=== PATIENT | male | born 1940 | race Caucasian/White ===

== ENCOUNTER 2022-10-13 13:50 | Emergency (ER) | payer MEDICARE, SELFPAY ==
[2022-10-13 13:52] VITALS: BP 142/74; PULSE 62; RESP 18; TEMP 36.8; O2SAT 98; BMI 26.5
--- NOTE | 2022-10-13 13:58 | XR_ITS ---
[place] [id number] Patient Name: NATALIA MAY MRN: [id number] date: 1940 Sex: M Assigned Patient Location: ER Current Patient Location: ER Accession/Order Number: [id number] Exam Date: 10/13/2022 14:30 Report Date: 10/13/2022 14:57 At the request of: TAN MORENO Procedure: XR pelvis 1-2V STUDY: XR pelvis 1-2V, [id number] HISTORY: Fall COMPARISON: None FINDINGS: No acute fracture, dislocation, or suspicious osseous lesion. 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 XR/XR pelvis 1-2V IMPRESSION: No acute osseous abnormality. Electronically authenticated by: LUIS FERNANDO WALLS Date: 10/13/2022 14:57
--- NOTE | 2022-10-13 13:58 | XR_ITS ---
The [address] [address] Patient Name: NATALIA MAY MRN: [id number] date: 1940 Sex: M Assigned Patient Location: ER Current Patient Location: ER Accession/Order Number: [id number] Exam Date: 10/13/2022 14:30 Report Date: 10/13/2022 14:55 At the request of: TAN MORENO Procedure: XR chest 1V EXAM: XR chest 1V at 1435 hours HISTORY: Syncope COMPARISON: 07/26/2018 TECHNIQUE: AP upright portable chest x-ray FINDINGS: The heart is not enlarged and the vasculature is not distended. No acute infiltrate, effusion or pneumothorax is identified. A calcified granuloma seen at the left lung base laterally. Degenerative changes are seen in the spine. XR/XR chest 1V IMPRESSION: No acute infiltrate or evidence of cardiac decompensation. The overall appearance of the chest is essentially unchanged. Electronically authenticated by: FAUSTINO CARROLL Date: 10/13/2022 14:55
--- NOTE | 2022-10-13 13:58 | ECG_ITS ---
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
--- NOTE | 2022-10-13 13:58 | XR_ITS ---
The [address] [address] Patient Name: NATALIA MAY MRN: [id number] date: 1940 Sex: M Assigned Patient Location: ER Current Patient Location: ER Accession/Order Number: [id number] Exam Date: 10/13/2022 14:30 Report Date: 10/13/2022 14:54 At the request of: TAN MORENO Procedure: XR knee LT 4V XR knee LT 4V, 10/13/2022 2:30 PM EDT, OH001 INDICATION: Fall COMPARISON: Radiographs from 07/26/2018 TECHNIQUE: 4 views are submitted. FINDINGS: The osseous structures appear well mineralized. The distal femur, proximal tibia, fibula and patella are all intact. Narrowing of the medial and patellofemoral joint compartments with moderate marginal osteophyte formation is again noted as well as moderate chondrocalcinosis. There is evidence of a moderate joint effusion. XR/XR knee LT 4V IMPRESSION: No acute osseous injury with normal alignment. Advanced degenerative changes are again noted in the medial and patellofemoral compartments. Moderate joint effusion. Electronically authenticated by: MANNY ULRICH Date: 10/13/2022 14:54
--- NOTE | 2022-10-13 14:00 | ED.FALL1 ---
HPI - Fall General Chief Complaint: Fall Stated Complaint: BACK PAIN , FALL Time Seen by Provider: 10/13/22 13:57 Source: patient Mode of arrival: ambulance History of Present Illness HPI Narrative: patient is an 10-year-old male who presents the emergency department by ambulance for the evaluation of a fall with injury to the low back. Patient is an extremely poor historian, when questioned on why he fell, he states that he was attempting to get up from a seated position and fell, he believes he may have passed out area to he states he is mildly dizzy at this time. He denies head injury, vomiting, visual changes. He denies any recent illness, chest pain, shortness of breath. He reports pain to his low back as well as his left knee. He denies taking blood thinners, [facility] P[facility] at [facility]. No medications were taken prior to arrival. Related Data Allergies Allergy/AdvReac Type Severity Reaction Status Date / Time Unable to Assess Allergy Verified 10/13/22 13:52 Review of Systems ROS Constitutional Denies: fever or chills Cardiovascular Denies: chest pain Respiratory Denies: shortness of breath or cough Gastrointestinal Denies: nausea or vomiting Musculoskeletal Reports: back pain and extremity pain; Denies: neck pain Integumentary/Breast Denies: rash Neurological Denies: headache Hematologic/Lymphatic Denies: easy bruising Exam Narrative Exam Narrative: Gen.: Awake, alert, in no distress Head: Normocephalic, atraumatic ENT: Moist mucous membranes, C-spine nontender Respiratory: No respiratory distress, lungs clear bilaterally Cardio: Regular rate and rhythm Gastrointestinal: Abdomen is soft, nondistended and nontender to palpation, pelvis is stable and hips are nontender Extremities: well-healed surgical scar and mild edema of the left knee, limited flexion and extension of the left knee due to pain with no obvious deformity or bony point tenderness. No upper extremity injuries noted. Back: diffuse tenderness of the lumbar spine with no abrasions, ecchymosis or bony point tenderness; no obvious deformity or step-off. No bony tenderness of the C-spine or T-spine Psych: Normal mood and affect Neuro: No focal neuro deficit Skin: Warm, dry, intact Constitutional Vital Signs, click to edit/add: Last Vital Signs Temp 98.3 F 10/13/22 13:52 Pulse 62 10/13/22 13:52 Resp 18 10/13/22 13:52 BP 142/74 H 10/13/22 13:52 Pulse Ox 98 10/13/22 13:52 O2 Del Method Room Air 10/13/22 13:52 Course Vital Signs Vital signs: Vital Signs Temperature 98.3 F 10/13/22 13:52 Pulse Rate 62 10/13/22 13:52 Respiratory Rate 18 10/13/22 13:52 Blood Pressure 142/74 H 10/13/22 13:52 Pulse Oximetry 98 10/13/22 13:52 Oxygen Delivery Method Room Air 10/13/22 13:52 Temperature 98.3 F 10/13/22 13:52 Pulse Rate 62 10/13/22 13:52 Respiratory Rate 18 10/13/22 13:52 Blood Pressure 142/74 H 10/13/22 13:52 Pulse Oximetry 98 10/13/22 13:52 Oxygen Delivery Method Room Air 10/13/22 13:52 MDM - Fall MDM Narrative Medical decision making narrative: CT of the head, C-spine, L-spine, x-rays of the chest, pelvis and left knee with no evidence of acute abnormalities. Lab studies show mild renal insufficiency and the patient was treated with IV fluids. Rahis arrived to the emergency Department and states that the neighbor saw him fall forward after he was trying to get himself up to a standing position walk into the house, he had no syncope. Patient's states that the patient has dementia and is not a reliable historian. He is awake, alert and in no distress in the Emergency Room with no focal medical complaints of chest pain, shortness of breath. He was able to ambulate to the bathroom with no difficulty. Patient's is comfortable taking him home. Follow-up with PCP and return to the Emergency Room if symptoms change or worsen. Medical Records Attestation: I reviewed the patient's medical records. Lab Data Attestation: I reviewed the patient's lab results. Labs: Lab Results 10/13/22 Range/Units 15:10 WBC 8.1 (4.0-11.0) 10^3/uL RBC 3.52 L (4.70-6.10) 10^6/uL Hgb 11.0 L (14.0-18.0) g/dL Hct 33.9 L (42.0-54.0) % MCV 96.3 H (80.0-94.0) fL MCH 31.3 (25.9-34.0) pg MCHC 32.4 (29.9-35.2) g/dL RDW 14.9 (11.0-15.0) % Plt Count 216 (150-450) 10^3/uL MPV 11.1 (9.5-13.5) fL Neut % (Auto) 71.9 (43.0-75.0) % Lymph % (Auto) 15.3 L (20.5-60.0) % [place] % (Auto) 9.0 (1.7-12.0) % Eos % (Auto) 2.6 (0.9-7.0) % Baso % (Auto) 0.6 (0.2-2.0) % Neut # (Auto) 5.8 (1.4-6.5) 10^3/uL Lymph # (Auto) 1.2 (1.2-3.8) 10^3/uL [place] # (Auto) 0.7 (0.3-0.8) 10^3/uL Eos # (Auto) 0.2 (0.0-0.7) 10^3/uL Baso # (Auto) 0.1 (0.0-0.1) 10^3/uL Abs Immat Gran (auto) 0.05 H (0.00-0.03) 10^3/uL Imm/Tot Granulo (auto) 0.6 H (0.0-0.5) % PT 10.3 (9.0-11.6) sec INR 0.97 APTT 26.4 (22.3-36.2) sec Sodium 144 (136-145) mmol/L Potassium 4.4 (3.5-5.1) mmol/L Chloride 110 H (98-107) mmol/L Carbon Dioxide 25.2 (21.0-32.0) mmol/L Anion Gap 13.2 BUN 33.0 H (7.0-18.0) mg/dL Creatinine 1.41 H (0.70-1.30) mg/dL Est GFR ( Amer) 59 L (>=60) Est GFR (Non-Af Amer) 48 L (>=60) BUN/Creatinine Ratio 23.4 Glucose 86 (74-106) mg/dL Calcium 9.1 (8.5-10.1) mg/dL Total Bilirubin 0.4 (0.2-1.0) mg/dL AST 18 (15-37) U/L ALT 13 L (16-63) U/L Alkaline Phosphatase 76 (46-116) U/L Troponin I High Sens 8.1 (4.0-76.1) pg/mL Total Protein 6.9 (6.4-8.2) g/dL Albumin 3.4 (3.4-5.0) g/dL Globulin 3.5 g/dL Albumin/Globulin Ratio 1.0 Urine Color Yellow (YELLOW) Urine Clarity Clear (CLEAR) Urine pH 6.0 (5.0-9.0) Ur Specific [place] 1.015 (1.005-1.025) Urine Protein Negative (NEG/TRACE) mg/dL Urine Glucose (UA) Negative (NEGATIVE) mg/dL Urine Ketones Negative (NEGATIVE) mg/dL Urine Occult Blood Negative (NEGATIVE) Urine Nitrite Negative (NEGATIVE) Urine Bilirubin Negative (NEGATIVE) Urine Urobilinogen 0.2 (0.2-1.0) EU/dL Ur Leukocyte Esterase Negative (NEGATIVE) ECG Data Attestation: I personally reviewed and interpreted this ECG as follows: (normal sinus rhythm at a rate of sixty-one, no acute ST elevation or ectopy. EKG reviewed by attendding physician) Discharge Plan Discharge Chief Complaint: Fall Clinical Impression: Low back pain, Fall Patient Disposition: Home, Self-Care Time of Disposition Decision: 16:11 Condition: Good Instructions: Acute Low Back Pain (ED), Fall Prevention (ED) Stand Alone Forms: Portal Instructions Referrals: Physician,Non-Staff, MD [Primary Care Provider] - 1 week
[2022-10-13 14:01] VITALS: PULSE 60; RESP 17
[2022-10-13 14:10] VITALS: PULSE 59; RESP 16
--- NOTE | 2022-10-13 14:32 | CT_ITS ---
The [address] [address] Patient Name: NATALIA MAY MRN: [id number] date: 1940 Sex: M Assigned Patient Location: ER Current Patient Location: ER Accession/Order Number: [id number] Exam Date: 10/13/2022 14:22 Report Date: 10/13/2022 14:47 At the request of: TAN MORENO Procedure: CT cervical spine wo con EXAM: CT cervical spine wo con HISTORY: Fall COMPARISON: None. TECHNIQUE: CT cervical spine without contrast. Multiplanar reformats obtained. The current study utilizes one or more of the following dose-reduction techniques: automated exposure control, iterative reconstruction, and/or manual adjustment of tube current and voltage for size. FINDINGS: No evidence of acute fracture or traumatic malalignment. Age expected degenerative changes. No prevertebral edema. Mild/moderate multilevel spinal canal stenosis. Moderate to severe multilevel and bilateral neural foraminal stenosis. CT/CT cervical spine wo con IMPRESSION: No acute findings of the cervical spine. Electronically authenticated by: ZOHAIB LLOYD Date: 10/13/2022 14:47
--- NOTE | 2022-10-13 14:32 | CT_ITS ---
The [address] [address] Patient Name: NATALIA MAY MRN: [id number] date: 1940 Sex: M Assigned Patient Location: ER Current Patient Location: ER Accession/Order Number: [id number] Exam Date: 10/13/2022 14:22 Report Date: 10/13/2022 14:47 At the request of: TAN MORENO Procedure: CT head/brain wo con EXAMINATION: CT head/brain wo con, 10/13/2022 2:22 PM EDT HISTORY: Fall, syncope COMPARISON: None. TECHNIQUE: CT scan of the head was performed without IV contrast. CT dose reduction technique was used, including Automated Exposure Control. HISTORY: Fall, syncope FINDINGS: BRAIN: Moderate generalized atrophy. Mild to moderate white matter hypoattenuation with scattered areas of CSF density likely representing remote lacunar infarcts. No acute hemorrhage or mass CSF SPACES: No hydrocephalus, subarachnoid hemorrhage, or mass. Appropriate for age. SKULL: No fracture, mass, or other significant visible lesion. SINUSES: No significant mucosal thickening or fluid on the limited views. ORBITS: No appreciable abnormality on the limited views. OTHER: Negative CT/CT head/brain wo con IMPRESSION: Atrophy and white matter disease No acute intracranial abnormality Electronically authenticated by: MAGDALENA MARTINEZ Date: 10/13/2022 14:47
--- NOTE | 2022-10-13 14:32 | CT_ITS ---
The [address] [address] Patient Name: NATALIA MAY MRN: [id number] date: 1940 Sex: M Assigned Patient Location: ER Current Patient Location: ER Accession/Order Number: [id number] Exam Date: 10/13/2022 14:22 Report Date: 10/13/2022 14:52 At the request of: TAN MORENO Procedure: CT lumbar spine wo con EXAM: CT lumbar spine wo con; [id number] REASON FOR EXAM: Fall COMPARISON: CT abdomen/pelvis 05/21/2021. TECHNIQUE: Helical CT images of the lumbar spine were obtained without contrast. Multiplanar reformats generated at the scanner. Dose reduction technique used: Automated exposure control and/or adjustment of the mA and/or kV according to patient size and/or use of iterative reconstruction technique. FINDINGS: Note: Compared with contrast-enhanced CT exams, noncontrast images are less sensitive for detection of some types of vascular, solid organ, and soft tissue pathology. Alignment: No traumatic malalignment. Non degenerative osseous findings: -No acute fracture. -No suspicious osseous lesion. Degenerative osseous changes: -Severe osteophytosis throughout the lumbar spine. There is severe intervertebral disc height loss at L4-L5 and lesser intervertebral disc height loss throughout the remainder of the lumbar spine. -Multilevel and bilateral severe facet arthropathy. Visualized paraspinous soft tissues: Fusiform abdominal aortic aneurysm at the iliac bifurcation measuring 31 mm in greatest AP dimension, similar compared with 05/21/2021. CT/CT lumbar spine wo con IMPRESSION: No acute traumatic abnormality of the lumbar spine. Electronically authenticated by: LUIS FERNANDO WALLS Date: 10/13/2022 14:52
[2022-10-13] MEDS: 0.9 % SODIUM CHLORIDE 1,000 ML 999 ML IV (15:14)
[2022-10-13 15:26] LABS: Basophils Absolute Auto 0.1 10^3/uL (0.0-0.1); Basophils Percent Auto 0.6 % (0.2-2.0); Eosinophils Absolute Auto 0.2 10^3/uL (0.0-0.7); Eosinophils Percent Auto 2.6 % (0.9-7.0); Hematocrit 33.9 % (42.0-54.0); Immature Granulocytes Abs Auto 0.05 10^3/uL (0.00-0.03); Immature Granulocytes Pct Auto 0.6 % (0.0-0.5); Lymphocytes Absolute Auto 1.2 10^3/uL (1.2-3.8); Lymphocytes Percent Auto 15.3 % (20.5-60.0); Mean Corpuscular HGB Conc 32.4 g/dL (29.9-35.2); Mean Corpuscular Hemoglobin 31.3 pg (25.9-34.0); Mean Corpuscular Volume 96.3 fL (80.0-94.0); Mean Platelet Volume 11.1 fL (9.5-13.5); Monocytes Absolute Auto 0.7 10^3/uL (0.3-0.8); Neutrophils Absolute Auto 5.8 10^3/uL (1.4-6.5); Neutrophils Percent Auto 71.9 % (43.0-75.0); Platelet Count 216 10^3/uL (150-450); Red Blood Count 3.52 10^6/uL (4.70-6.10); Red Cell Distribution Width 14.9 % (11.0-15.0); White Blood Count 8.1 10^3/uL (4.0-11.0)
[2022-10-13 15:35] LABS: Bilirubin Urine NEGATIVE (NEGATIVE); Blood Urine NEGATIVE (NEGATIVE); Clarity Urine CLEAR (CLEAR); Color Urine YELLOW (YELLOW); Glucose Urine UA NEGATIVE (NEGATIVE); Ketones Urine NEGATIVE (NEGATIVE); Leukocyte Esterase Urine NEGATIVE (NEGATIVE); Nitrite Urine NEGATIVE (NEGATIVE); Protein Urine NEGATIVE (NEG/TRACE); Specific Gravity Urine 1.015 (1.005-1.025); Urobilinogen Urine 0.2 EU/dL (0.2-1.0)
[2022-10-13 15:37] LABS: Urine Microscopic Indicated NO
[2022-10-13 15:40] LABS: INR 0.97; Partial Thromboplastin Time 26.4 sec (22.3-36.2); Prothrombin Time 10.3 sec (9.0-11.6)
[2022-10-13 15:42] LABS: Alanine Aminotransferase 13 U/L (16-63); Albumin Level 3.4 g/dL (3.4-5.0); Alkaline Phosphatase 76 U/L (46-116); Anion Gap 13.2; Aspartate Amino Transferase 18 U/L (15-37); BUN Creatinine Ratio 23.4; Bilirubin Total 0.4 mg/dL (0.2-1.0); Calcium 9.1 mg/dL (8.5-10.1); Carbon Dioxide 25.2 mmol/L (21.0-32.0); Chloride 110 mmol/L (98-107); Estimated GFR (African America 59 (>=60); Estimated GFR (Non-African Ame 48 (>=60); Globulin 3.5 g/dL; Glucose 86 mg/dL (74-106); Potassium 4.4 mmol/L (3.5-5.1); Sodium 144 mmol/L (136-145); Total Protein 6.9 g/dL (6.4-8.2); Troponin I High Sensitivity 8.1 pg/mL (4.0-76.1)
[2022-10-13 16:16] VITALS: O2SAT 99
[2022-10-13 16:17] VITALS: BP 150/85
== END 2022-10-13 16:27 | disposition home or self-care (01) ==
PROVIDERS: Physician Assistant; Emergency Provider Emergency Medicine Emergency Medical Services
DX: M54.50 Low back pain, unspecified (principal); M25.562 Pain in left knee; N28.9 Disorder of kidney and ureter, unspecified; Z91.81 History of falling; F03.90 Unspecified dementia, unspecified severity, without behavioral disturbance, psychotic disturbance, mood disturbance, and anxiety
CPT/HCPCS: 36415; 70450; 71045; 72125; 72131; 72170; 73564; 80053; 81003; 84484; 85025; 85610; 85730; 93005; 96360; 99285

== ENCOUNTER 2023-01-05 17:57 | Emergency (ER) | payer MEDICARE, SELFPAY ==
[2023-01-05 18:00] VITALS: BP 142/66; PULSE 66; RESP 18; TEMP 36.4; O2SAT 99
--- NOTE | 2023-01-05 18:07 | XR_ITS ---
The [address] [address] Patient Name: NATALIA MAY MRN: [id number] date: 1940 Sex: M Assigned Patient Location: ER Current Patient Location: ER Accession/Order Number: [id number] Exam Date: 01/05/2023 19:35 Report Date: 01/05/2023 19:58 At the request of: TAN MORENO Procedure: XR chest 1V EXAMINATION: XR chest 1V 01/05/2023 4:57 PM PST HISTORY: Altered mental status TECHNIQUE: Single frontal view of the chest acquired. COMPARISONS: Chest x-ray 10/13/2022. FINDINGS: Lines/tubes/other: None. Heart and mediastinum: Stable. Bones: No acute osseous abnormality. Lungs: The lungs are clear. There is no evidence of pneumonia or pulmonary edema. Pleura: There is no significant pleural effusion or pneumothorax. Other: None. XR/XR chest 1V IMPRESSION: No acute cardiopulmonary abnormality. Electronically authenticated by: LUIS FERNANDO WALLS Date: 01/05/2023 19:58
--- NOTE | 2023-01-05 18:07 | CT_ITS ---
The [address] [address] Patient Name: NATALIA MAY MRN: [id number] date: 1940 Sex: M Assigned Patient Location: ER Current Patient Location: ER Accession/Order Number: [id number] Exam Date: 01/05/2023 19:35 Report Date: 01/05/2023 20:05 At the request of: TAN MORENO Procedure: CT head/brain wo con EXAM: CT head/brain wo con HISTORY: Agitation COMPARISON: CT brain 10/13/2022, 07/28/2018. TECHNIQUE: Axial CT scans through the head were obtained without IV contrast administration. Dose reduction techniques were achieved by using: automated exposure control and/or adjustment of mA and /or kV according to patient size and/or use of iterative reconstruction technique. FINDINGS: There is no evidence of acute intracranial hemorrhage or abnormal extra-axial fluid collection. No mass effect or midline shift is seen. There is no evidence of large acute territorial infarction. There is no hydrocephalus. Moderate enlargement of the cortical sulci, consistent with age appropriate cerebral atrophy. There are small areas of encephalomalacia in periventricular and subcortical white matter of the left frontal and right parietal lobes, stable since 2019, likely represent remote lacunar infarct. To the limit of CT, the posterior fossa appears unremarkable. No definite acute fracture is identified. Soft tissues are unremarkable. The visualized orbits show no abnormal mass. There is complete opacification of right frontal sinus and right anterior ethmoid air cells, increased since 10/13/2022. Mastoid air cells are clear. CT/CT head/brain wo con IMPRESSION: No CT evidence of acute intracranial abnormality. Nonacute findings as discussed. If there is sufficient clinical concern for acute brain parenchymal pathology, consider MRI for further evaluation. Complete opacification of right frontal sinus and right anterior ethmoid air cells, increased since 10/13/2022. Correlate clinically for acute sinusitis. Electronically authenticated by: KWAME GANT Date: 01/05/2023 20:05
--- NOTE | 2023-01-05 18:07 | ECG_ITS ---
The 

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
[2023-01-05 18:44] LABS: Basophils Percent Auto 0.4 % (0.2-2.0); Eosinophils Absolute Auto 0.1 10^3/uL (0.0-0.7); Eosinophils Percent Auto 1.2 % (0.9-7.0); Hematocrit 30.2 % (42.0-54.0); Hemoglobin 9.7 g/dL (14.0-18.0); Immature Granulocytes Abs Auto 0.14 10^3/uL (0.00-0.03); Immature Granulocytes Pct Auto 1.4 % (0.0-0.5); Lymphocytes Absolute Auto 1.4 10^3/uL (1.2-3.8); Lymphocytes Percent Auto 14.3 % (20.5-60.0); Mean Corpuscular HGB Conc 32.1 g/dL (29.9-35.2); Mean Corpuscular Hemoglobin 30.9 pg (25.9-34.0); Mean Corpuscular Volume 96.2 fL (80.0-94.0); Mean Platelet Volume 11.1 fL (9.5-13.5); Monocytes Absolute Auto 0.9 10^3/uL (0.3-0.8); Neutrophils Absolute Auto 7.4 10^3/uL (1.4-6.5); Neutrophils Percent Auto 73.7 % (43.0-75.0); Platelet Count 270 10^3/uL (150-450); Red Blood Count 3.14 10^6/uL (4.70-6.10); Red Cell Distribution Width 15.1 % (11.0-15.0)
[2023-01-05 18:50] VITALS: PULSE 66; RESP 13; O2SAT 99
[2023-01-05 18:55] LABS: SARS-CoV-2 Ag NEGATIVE (NEGATIVE)
[2023-01-05 19:00] VITALS: PULSE 65; RESP 17; O2SAT 99
[2023-01-05 19:03] LABS: Anion Gap 11.5
[2023-01-05 19:11] LABS: Alanine Aminotransferase 24 U/L (16-63); Albumin Globulin Ratio 0.5; Albumin Level 2.3 g/dL (3.4-5.0); Alkaline Phosphatase 72 U/L (46-116); Aspartate Amino Transferase 30 U/L (15-37); BUN Creatinine Ratio 13.4; Bilirubin Total 0.4 mg/dL (0.2-1.0); Carbon Dioxide 29.1 mmol/L (21.0-32.0); Chloride 107 mmol/L (98-107); Estimated GFR (African America >60 (>=60); Estimated GFR (Non-African Ame >60 (>=60); Ethanol <3 mg/dL; Globulin 4.4 g/dL; Glucose 96 mg/dL (74-106); Potassium 3.6 mmol/L (3.5-5.1); Salicylate <2.8 mg/dL (<=19.9); Sodium 144 mmol/L (136-145); Thyroid Stimulating Hormone 1.758 uIU/mL (0.358-3.740); Total Protein 6.7 g/dL (6.4-8.2)
[2023-01-05 19:18] LABS: Acetaminophen <2.0 ug/mL (10.0-30.0)
[2023-01-05 20:40] LABS: Bilirubin Urine NEGATIVE (NEGATIVE); Blood Urine NEGATIVE (NEGATIVE); Clarity Urine CLEAR (CLEAR); Color Urine YELLOW (YELLOW); Glucose Urine UA NEGATIVE (NEGATIVE); Ketones Urine NEGATIVE (NEGATIVE); Leukocyte Esterase Urine NEGATIVE (NEGATIVE); Nitrite Urine NEGATIVE (NEGATIVE); Protein Urine TRACE mg/dL (NEG/TRACE); Specific Gravity Urine 1.015 (1.005-1.025); pH Urine 6.5 (5.0-9.0)
[2023-01-05 20:43] LABS: Urine Microscopic Indicated NO
[2023-01-05 20:51] LABS: Amphetamine Screen Urine NEGATIVE (NEGATIVE); Barbiturates Screen Urine NEGATIVE (NEGATIVE); Benzodiazepines Screen Urine NEGATIVE (NEGATIVE); Cannabinoid Screen Urine NEGATIVE (NEGATIVE); Cocaine Screen Urine NEGATIVE (NEGATIVE); Methadone Screen Urine NEGATIVE (NEGATIVE); Methamphetamines Screen Urine NEGATIVE (NEGATIVE); Opiate Screen Urine NEGATIVE (NEGATIVE); Oxycodone Screen Urine NEGATIVE (NEGATIVE); Phencyclidine Screen Urine NEGATIVE (NEGATIVE); Tricyclic Antidepressant Urine NEGATIVE (NEGATIVE)
[2023-01-05 20:52] LABS: Buprenorphine Screen Urine NEGATIVE (NEGATIVE)
[2023-01-06] VITALS (8 sets, daily range): BP systolic 114–180; BP diastolic 65–86; PULSE 73–90; RESP 16–18; O2SAT 96–100
[2023-01-06] MEDS: CLONIDINE HCL 0.1 MG TABLET PO (06:24)
[2023-01-06 11:27] LABS: SARS-CoV-2 NAA NOT DETECTED (NOT DETECTE)
== END 2023-01-06 18:18 ==
PROVIDERS: Physician Assistant; Emergency Provider Emergency Medicine
DX: F03.911 Unspecified dementia, unspecified severity, with agitation (principal); R41.82 Altered mental status, unspecified; Z20.822 Contact with and (suspected) exposure to COVID-19
CPT/HCPCS: 36415; 70450; 71045; 80053; 80179; 80307; 80320; 80329; 81003; 84443; 85025; 87635; 87811; 93005; 99285